=== PATIENT | male | born 1990 | race African-American/Black ===

== ENCOUNTER 2017-04-03 06:42 | Emergency (ER) | payer OTHER ==
[~2017-04-03] VITALS: Ht 182.9 cm; Wt 107.4 kg
[2017-04-03 06:43] VITALS: BP 138/83
[2017-04-03] MEDS ORDERED: KETOROLAC 30 MG/1 ML IM ONE (07:00)
[2017-04-03] MEDS ORDERED: KETOROLAC 30 MG/1 ML ONE (07:05)
== END 2017-04-03 07:25 | disposition home or self-care (01) ==
LOC: ED 07:07
DX: K08.89 Other specified disorders of teeth and supporting structures (principal); Z87.891 Personal history of nicotine dependence
CPT/HCPCS: 96372; 99283; J1885

== ENCOUNTER 2017-04-21 04:35 | Emergency (ER) | payer OTHER ==
[~2017-04-21] VITALS: Ht 182.9 cm; Wt 110.0 kg
[2017-04-21 04:39] VITALS: BP 144/98
[2017-04-21] MEDS ORDERED: BENZOCAINE 20% SPRAY 0.5ML ONE (05:37)
[2017-04-21] MEDS ORDERED: HYDROcodone/APAP 5/325 TABLET ONE (05:37)
[2017-04-21] MEDS ORDERED: LIDOCAINE 1%, 20ML ONE (05:38)
[2017-04-21] MEDS ORDERED: HYDROcodone/APAP 5/325 TABLET PO ONE (06:00)
[2017-04-21] MEDS ORDERED: LIDOCAINE 1%, 20ML SQ ONE (06:00)
[2017-04-21] MEDS ORDERED: BENZOCAINE 20% SPRAY 0.5ML TP ONE (06:00)
== END 2017-04-21 06:10 | disposition home or self-care (01) ==
LOC: ED 06:02
DX: K04.7 Periapical abscess without sinus (principal); F17.210 Nicotine dependence, cigarettes, uncomplicated
CPT/HCPCS: 41800; 99284; J3490

== ENCOUNTER 2017-05-15 15:36 | Emergency (ER) | payer SELFPAY ==
[~2017-05-15] VITALS: Ht 182.9 cm; Wt 107.5 kg
[2017-05-15 15:38] VITALS: BP 132/79
== END 2017-05-15 15:49 | disposition left against medical advice (07) ==
LOC: ED 15:48
DX: K08.89 Other specified disorders of teeth and supporting structures (principal)
CPT/HCPCS: 99281

== ENCOUNTER 2017-05-17 12:30 | Emergency (ER) | payer SELFPAY ==
[~2017-05-17] VITALS: Ht 182.9 cm; Wt 111.1 kg
[2017-05-17 12:32] VITALS: BP 148/91
[2017-05-17 13:29] LABS: HEMATOCRIT 39.5 % (39.2-51.8); HEMOGLOBIN 13.5 g/dL (13.7-18.0); WHITE BLOOD COUNT 5.6 x10^3/uL (3.4-10)
[2017-05-17] MEDS ORDERED: PROMETHAZINE 25 MG/ML, 1ML IM ONE (13:30)
[2017-05-17] MEDS ORDERED: PROMETHAZINE 25 MG/ML, 1ML ONE (13:31)
[2017-05-17] MEDS ORDERED: HYDR-882 PO (13:34)
[2017-05-17] MEDS ORDERED: AMOX-291 PO (13:34)
[2017-05-17 13:41] LABS: ASPARTATE AMINO TRANSFERASE 29 U/L (15-37); BLOOD UREA NITROGEN 8 mg/dL (7-18)
== END 2017-05-17 14:37 | disposition home or self-care (01) ==
LOC: ED 13:13
DX: R11.0 Nausea (principal)
CPT/HCPCS: 36415; 80053; 85025; 96372; 99284; J2550

== ENCOUNTER 2017-05-28 17:37 | Observation (INO) | payer OTHER ==
[~2017-05-28] VITALS: Ht 182.9 cm; Wt 105.0 kg
[~2017-05-28 17:37] MED LIST: AMOX-291 PO; HYDR-882 PO
[2017-05-28] MEDS ORDERED: SODIUM CHLORIDE FLUSH 10ML SYR IVF ONE (18:00)
[2017-05-28 18:07] LABS: HEMATOCRIT 39.1 % (39.2-51.8); HEMOGLOBIN 13.4 g/dL (13.7-18.0); WHITE BLOOD COUNT 15.7 x10^3/uL (3.4-10)
[2017-05-28] MEDS ORDERED: ONDANSETRON 2MG/ML, 2ML ONE (18:20)
[2017-05-28 18:26] LABS: ACETAMINOPHEN 24 mcg/mL (10-30); ASPARTATE AMINO TRANSFERASE 68 U/L (15-37); BLOOD UREA NITROGEN 19 mg/dL (7-18)
[2017-05-28] MEDS ORDERED: ONDANSETRON 2MG/ML, 2ML IVPush ONE (18:30)
[2017-05-28] MEDS ORDERED: ACETYLCYSTEINE 20%, 30ML PO ONE (18:30)
[2017-05-28] MEDS ORDERED: DEXTROSE 5% IV ONE ×2 (19:00→20:00)
[2017-05-28] MEDS ORDERED: ACETYLCYSTEINE IV ONE ×2 (19:00→20:00)
[2017-05-28] MEDS: ENOXAPARIN 40 MG/0.4 ML SQ SCH (21:00)
[2017-05-28] MEDS ORDERED: ACETYLCYSTEINE 20%, 30ML PO SCH (22:30)
[2017-05-29] MEDS ORDERED: ACETYLCYSTEINE IV ONE
[2017-05-29] MEDS ORDERED: DEXTROSE 5% IV ONE
[2017-05-29 05:47] LABS: HEMOGLOBIN 13.3 g/dL (13.7-18.0); WHITE BLOOD COUNT 9.1 x10^3/uL (3.4-10)
[2017-05-29 05:59] LABS: ASPARTATE AMINO TRANSFERASE 51 U/L (15-37); BLOOD UREA NITROGEN 13 mg/dL (7-18)
[2017-05-29 08:00] VITALS: BP 104/68
[2017-05-29 18:01] LABS: DAU SCREEN DISCLAIMER
[2017-05-29 19:33] VITALS: BP 107/65
[2017-05-29] MEDS: ENOXAPARIN 40 MG/0.4 ML SQ SCH (20:05)
[2017-05-30 08:00] VITALS: BP 109/68
[2017-05-30 19:29] VITALS: BP 121/74
[2017-05-30] MEDS: ENOXAPARIN 40 MG/0.4 ML SQ SCH (19:51)
[2017-05-31 07:12] VITALS: BP 116/71
[2017-05-31 19:14] VITALS: BP 121/76
[2017-05-31] MEDS: ENOXAPARIN 40 MG/0.4 ML SQ SCH (21:03)
[2017-06-01 06:19] LABS: ASPARTATE AMINO TRANSFERASE 20 U/L (15-37); BLOOD UREA NITROGEN 12 mg/dL (7-18)
[2017-06-01 08:00] VITALS: BP 114/68
[2017-06-01] MEDS ORDERED: NICOTINE 21 MG/24 HR PATCH.TD24 TD SCH (09:00)
[2017-06-01 19:32] VITALS: BP 138/80
[2017-06-02 08:02] VITALS: BP 114/72
[2017-06-02] MEDS: NICOTINE 21 MG/24 HR PATCH.TD24 TD SCH (08:56)
[2017-06-02 19:29] VITALS: BP 116/72
[2017-06-03 08:00] VITALS: BP 123/75
[2017-06-03] MEDS: NICOTINE 21 MG/24 HR PATCH.TD24 TD SCH (09:31)
[2017-06-03 19:28] VITALS: BP 125/76
[2017-06-04 08:00] VITALS: BP 118/67
[2017-06-04] MEDS: NICOTINE 21 MG/24 HR PATCH.TD24 TD SCH (10:14)
[2017-06-04 19:37] VITALS: BP 117/70
[2017-06-05 08:15] VITALS: BP 125/76
[2017-06-05] MEDS: NICOTINE 21 MG/24 HR PATCH.TD24 TD SCH (08:51)
== END 2017-06-05 12:26 ==
LOC: ED 19:16 → INTOOBSV 19:33 → EDIP 19:33 → 3E 21:37
PROVIDERS: ADMIT Hospitalist; ATTEND Hospitalist
DX: T14.91XA Suicide attempt, initial encounter (principal); T39.1X2A Poisoning by 4-Aminophenol derivatives, intentional self-harm, initial encounter; R00.1 Bradycardia, unspecified; Y92.098 Other place in other non-institutional residence as the place of occurrence of the external cause; Y93.89 Activity, other specified; Y99.8 Other external cause status; D72.828 Other elevated white blood cell count; F10.10 Alcohol abuse, uncomplicated
CPT/HCPCS: 36415; 80053; 80307; 80329; 82140; 83690; 85025; 85610; 93005; 96365; 96366; 96372; 96375; 99291; G0378; J0132; J1650; J2405; J7060; G0479; G0480

== ENCOUNTER 2019-02-01 02:34 | Emergency (ER) | payer MEDICAID ==
[~2019-02-01] VITALS: Ht 182.9 cm; Wt 124.0 kg
[~2019-02-01 02:34] MED LIST changes: +HYDR-3653 PO; -HYDR-882 PO
--- NOTE | 2019-02-01 02:55 | NUR ---
assessment made. ERP at bedside. c/o substernal chest pain radiates to left chest and back. pain with deep breathing, symptoms started yesterday afternoon. pain worse today.
--- NOTE | 2019-02-01 02:58 | NUR ---
lab at bedside for blood draw.
--- NOTE | 2019-02-01 03:03 | NUR ---
back from Xray. awaiting result.
[2019-02-01 03:12] LABS: BASOPHILS # (AUTO) 0.08 x10^3/uL (0-0.1); BASOPHILS % (AUTO) 1 % (0-1); EOSINOPHILS # (AUTO) 0.13 x10^3/uL (0-0.4); EOSINOPHILS % (AUTO) 1 % (1-7); LYMPHOCYTES # (AUTO) 3.24 x10^3/uL (1-3.4); LYMPHOCYTES % (AUTO) 30 % (22-44); MD NO; MEAN CORPUSCULAR HEMOGLOBIN 29.2 pg (27.5-34.5); MEAN CORPUSCULAR HGB CONC 32.7 g/dL (33.2-36.2); MEAN CORPUSCULAR VOLUME 89.3 fL (81-97); MEAN PLATELET VOLUME 8.2 fL (7.4-10.4); MONOCYTES # (AUTO) 0.73 x10^3/uL (0.2-0.8); MONOCYTES % (AUTO) 7 % (2-9); NEUTROPHILS # (AUTO) 6.65 x10^3/uL (1.8-6.8); NEUTROPHILS % (AUTO) 61 % (42-75); PLATELET COUNT 247 x10^3/uL (130-400); RED BLOOD COUNT 4.72 x10^6/uL (4.38-5.82); RED CELL DISTRIBUTION WIDTH 14.2 % (9.4-14.8)
[2019-02-01 03:26] LABS: ALBUMIN 3.7 g/dL (3.4-5.0); ANION GAP 6 mmol/L (5-15); CALCIUM 8.7 mg/dL (8.5-10.1); CHLORIDE 108 mmol/L (98-107)
[2019-02-01 03:33] LABS: CREATININE 1.53 mg/dL (0.7-1.3); TROPONIN I 0.017 ng/mL (0.000-0.045)
--- NOTE | 2019-02-01 04:03 | NUR ---
labs and X ray resulted. chart up for MD to re-eval.
--- NOTE | 2019-02-01 04:51 | NUR ---
patient discharged with instruction. verbalized understanding.
[2019-02-01 04:52] VITALS: BP 135/72
== END 2019-02-01 04:53 | disposition home or self-care (01) ==
LOC: ED 03:12
DX: R07.89 Other chest pain (principal); Z87.891 Personal history of nicotine dependence
CPT/HCPCS: 36415; 71046; 80048; 82040; 84484; 85025; 93005; 99284

== ENCOUNTER 2019-04-08 18:49 | Emergency (ER) | payer MEDICAID, OTHER ==
[~2019-04-08] VITALS: Ht 182.9 cm; Wt 118.7 kg
[2019-04-08 23:34] VITALS: BP 120/81
== END 2019-04-08 23:53 | disposition home or self-care (01) ==
LOC: ED 23:00
DX: R42 Dizziness and giddiness (principal); F31.9 Bipolar disorder, unspecified; F17.200 Nicotine dependence, unspecified, uncomplicated
CPT/HCPCS: 36415; 71045; 80053; 84484; 85025; 93005; 99284